=== PATIENT | female | born 1985 | race Hispanic/Latino ===

== ENCOUNTER 2018-11-14 19:21 | Emergency (ER) | payer MEDICAID, SELFPAY ==
[2018-11-14 20:13] LABS: #Eosinphils 0.1 thou/uL (0.0-0.7); #Lymphocytes 1.9 thou/uL (1.20-3.40); #Monocytes 0.7 thou/uL (0.11-0.59); %Basophils 0.2 % (0.0-1.0); %Eosinophils 1.1 % (0.0-10.0); %Lymphocytes 19.4 % (21.0-51.0); %Monocytes 7.6 % (0.0-10.0); %Neutrophils 71.7 % (42.0-75.0); Hemoglobin 13.9 g/dL (12.0-16.0); Mean Corpuscular HGB CONC 32.7 g/dL (32.0-36.0); Mean Corpuscular Hemoglobin 30.1 pg (27.0-31.0); Mean Corpuscular Volume 92.2 fL (78.0-98.0); Mean Platelet Volume 10.1 fL (7.4-10.4); Platelet Count 244 thou/uL (130-400); RBC Distribution Width 11.5 % (11.5-14.5); Red Blood Cell (RBC) Count 4.62 mill/uL (4.20-5.40); White Blood Cell (WBC) Count 9.8 thou/uL (4.8-10.8)
[2018-11-14 20:33] LABS: ALT (SGPT) 20 U/L (8-55); AST (SGOT) 22 U/L (5-34); Albumin 4.3 g/dL (3.5-5.0); Alkaline Phosphatase 105 U/L (40-150); Anion Gap 10 mmol/L (10-20); BUN (Urea Nitrogen) 11 mg/dL (7.0-18.7); Bilirubin, Total 0.3 mg/dL (0.2-1.2); CK (CPK) 251 U/L (29-168); Calc. Creatinine Clearance 0 mL/min (70-130); Calcium 9.5 mg/dL (7.8-10.44); Carbon Dioxide 29 mmol/L (22-29); Chloride 103 mmol/L (98-107); Estimated GFR-MDRD Greater than 90; Glucose 116 mg/dL (70-105); Lipase 12 U/L (8-78); Potassium 4.2 mmol/L (3.5-5.1); Protein, Total 7.3 g/dL (6.0-8.3); Sodium 138 mmol/L (136-145)
--- NOTE | 2018-11-14 20:35 | RAD ---
PORTABLE AP CHEST RADIOGRAPH: Date: 11-14-18 History: Left upper abdominal pain radiating to the back, chest pain. Patient reports pain started to day. Comparison: None available. FINDINGS: Cardiac silhouette and pulmonary vasculature are within normal limits. No consolidation or pleural fl uid is seen. Osseous structures are intact. IMPRESSION: No acute cardiopulmonary process. POS: [facility]
[2018-11-14 23:48] LABS: Pregnancy Test - Urine (BHCG) Negative (Negative)
[2018-11-14 23:49] LABS: Pregu Control Background? CLEAR/WHITE (CLR/WHITE); Pregu Control Bar Appear? YES (CONTROL BAR)
[2018-11-14 23:50] LABS: Bilirubin Negative (Negative); Blood, Urine Negative (Negative); Clarity CLOUDY (Clear); Glucose, Urine (Dipstick) Negative (Negative); Leukocyte Small (Negative); Nitrite Positive (Negative); Protein, Urine (Dipstick) Negative (Neg-Trace); Specific Gravity 1.025 (1.002-1.036); Specific Gravity, Urine 1.025 (1.002-1.036); Urobilinogen 0.2 mg/dL (0.2-1.0)
[2018-11-14 23:51] LABS: Bacteria/HPF 4+ HPF (None Seen)
[2018-11-14 23:54] LABS: Hyaline Casts/LPF 0-3 HYALINE CAST LPF (0-3 Hyaline); Other Casts/LPF None Seen LPF (0-3 Hyaline); Pathc Cast-AUWi Flag 3.26 (0-2.49)
[2018-11-15] MEDS ORDERED: Fentanyl 100 MCG/2 ML VIAL ONE (00:16)
[2018-11-15] MEDS ORDERED: Ketorolac Tromethamine 30 MG/ML VIAL ONE (00:16)
[2018-11-15] MEDS ORDERED: Mag-Al 1200 mg/1200 mg/30 ML UDCUP ONE (00:20)
[2018-11-15] MEDS ORDERED: Fentanyl 100 MCG/2 ML VIAL SLOW IVP SCH (00:30)
[2018-11-15] MEDS ORDERED: Lorazepam 2 MG/ML VIAL SLOW IVP SCH (00:30)
[2018-11-15] MEDS ORDERED: Ketorolac Tromethamine 30 MG/ML VIAL IVP SCH (00:30)
[2018-11-15] MEDS ORDERED: Lidocaine 2% Viscous Solution 10 ML, Aluminum & Magnesium Hydroxide 30 ML SSW SCH (00:30)
[2018-11-15] MEDS ORDERED: Lidocaine Viscous Sol 2% 15 ml UD Cup ONE (01:18)
--- NOTE | 2018-11-15 09:16 | CT ---
PRELIMINARY REPORT/[facility]/EMERGENTY AFTER-HOURS PROCEDURE CT Abdomen and Pelvis Without Contrast EXAM DATE/TIME: 11/15/2018 12:30 AM CLINICAL HISTORY: 33 years old, female; Pain; Abdominal pain; Localized; Left upper quadrant (luq); Patient HX: 33f pre sents for the evaluation of luq pain. Patient reports pain started the day prior. She reports the maria isabel n radiates in to her chest and that she is short of breath due to pain. Denies nausea and vomiting. TECHNIQUE: Axial computed tomography images of the abdomen and pelvis without contrast. Coronal reformatted images were created and reviewed. COMPARISON: No relevant prior studies available. FINDINGS: Lower thorax: Trace left pleural effusion. Left basilar atelectasis. ABDOMEN: Liver: Normal. No mass. Gallbladder and bile ducts: Normal. No calcified stones. No ductal dilation. Pancreas: Normal. No ductal dilation. Spleen: Normal. No splenomegaly. Adrenals: Normal. No mass. Kidneys and ureters: Normal. No hydronephrosis. Stomach and bowel: No bowel wall thickening or intestinal obstruction. Appendix: Normal appendix. PELVIS: Bladder: Unremarkable as visualized. Reproductive: Unremarkable as visualized. ABDOMEN and PELVIS: Intraperitoneal space: Normal. No free air. No significant fluid collection. Bones/joints: Large L5-S1 central disc herniation causing moderate central canal stenosis and probabl e impingement of the transiting left S1 nerve root. Soft tissues: Unremarkable. Vasculature: Normal. No abdominal aortic aneurysm. Lymph nodes: Normal. No enlarged lymph nodes. IMPRESSION: 1. Trace left pleural effusion. 2. Large L5-S1 central disc herniation causing moderate central canal stenosis and probable impingeme nt of the transiting left S1 nerve root. Thank you for allowing us to participate in the care of your patient. Dictated and Authenticated by: Deep Merlos MD 11/15/2018 1:44 AM Central Time ([place] & [place]) FINAL REPORT CT ABDOMEN AND PELVIS WITHOUT CONTRAST: Date: 11/14/18 HISTORY: Abdominal pain. COMPARISON: None. FINDINGS/IMPRESSION: Findings and impression are concordant with the preliminary report by Evan. POS: [facility]
--- NOTE | 2018-11-19 13:45 | EKG ---
Test Reason : Blood Pressure : / mmHG Vent. Rate : 095 BPM Atrial Rate : 095 BPM P-R Int : 154 ms QRS Dur : 080 ms QT Int : 350 ms P-R-T Axes : 053 027 040 degrees QTc Int : 439 ms Normal sinus rhythm Nonspecific T wave abnormality Abnormal ECG Confirmed by ROHIT DUVALL, MISA ([id number]), photographic editor LUL FRANKEL ([id number]) on 11/19/2018 1:44:47 PM Referred By: Confirmed By:MISA BEE MD
== END 2018-11-15 03:09 | disposition home or self-care (01) ==
LOC: ERS 19:21
DX: N39.0 Urinary tract infection, site not specified (principal); R10.12 Left upper quadrant pain
CPT/HCPCS: 36415; 71045; 74176; 80053; 81003; 81015; 81025; 82550; 83690; 83880; 84484; 85025; 85379; 93005; 96361; 96365; 96366; 96375; J1885; J2060; J3010

== ENCOUNTER 2019-02-03 09:54 | Emergency (ER) | payer SELFPAY ==
[2019-02-03] MEDS ORDERED: Ketorolac Tromethamine 60 MG/2 ML VIAL ONE (11:06)
[2019-02-03] MEDS ORDERED: Dexamethasone 4 MG TAB ONE (11:14)
== END 2019-02-03 11:39 | disposition home or self-care (01) ==
LOC: ERS 09:54
DX: M54.16 Radiculopathy, lumbar region (principal)
CPT/HCPCS: 96372; J1885; J8540